=== PATIENT | female | born 1950 | race Caucasian/White ===

== ENCOUNTER 2017-01-24 08:00 | Outpatient (CLI) | payer MEDICARE, BC ==
[~2017-01-24] VITALS: Ht 167.6 cm; Wt 158.8 kg
[2017-01-24 10:20] VITALS: Ht 167.6 cm; Wt 158.8 kg
== END 2017-01-24 23:59 | disposition home or self-care (01) ==
LOC: D.FANS 08:00
DX: E66.01 Morbid (severe) obesity due to excess calories (principal)

== ENCOUNTER → 2017-04-25 09:39 | Outpatient (CLI) | payer MEDICARE, BC ==
[2017-01-24 10:20] VITALS: BMI 56.5
== END | disposition home or self-care (01) ==
LOC: D.RT 09:39
DX: R06.09 Other forms of dyspnea (principal)

== ENCOUNTER → 2018-06-13 11:17 | Outpatient (CLI) | payer MEDICARE, BC ==
[2017-01-24 10:20] VITALS: BMI 56.5
== END | disposition home or self-care (01) ==
LOC: D.HCCARDIO 11:17
PROVIDERS: ATTEND Internal Medicine Cardiovascular Disease
DX: R06.09 Other forms of dyspnea (principal)

== ENCOUNTER → 2018-06-18 11:47 | Outpatient (CLI) | payer MEDICARE, BC ==
[2017-01-24 10:20] VITALS: BMI 56.5
--- NOTE | 2018-06-21 15:12 | EC ---
PATIENT:LOVE LOAIZA DATE OF SERVICE: 06/18/18 SEX: F MEDICAL RECORD: [id number] DATE OF : 46 LOCATION:[facility] AGE OF PATIENT: 67 ADMISSION DATE: 06/18/18 REFERRING PHYSICIAN: INTERPRETING PHYSICIAN: MAGALY ANGELES MD ECHOCARDIOGRAM REPORT ECHO CHARGES 4 ECHO COMPLETE Date: 06/18/18 CLINICAL DIAGNOSIS: SOB/ ASSESS EF AND FOR CARDIOMYOPATHY ECHOCARDIOGRAPHIC MEASUREMENTS (adult normal given) AC root (d.<3.7cm) 3.5 cm LV Septum d (<1.2 cm> 2.4 cm Valve Excursion 1.7 cm LV Septum (systole) 2.6 cm Left Atria (s.<4.0cm> 4.0 cm LVPW d(<1.2cm) 2.3 cm RV (d.<2.3cm) 3.9 cm LVPW (sytole) 2.5 cm LV diastole(<5.6CM) 3.8 cm MV E-F(>70mm/sec) cm LV systole 2.6 cm LVOT Diameter 1.9 cm MV exc.(>10mm) 1.2 cm Est.ejection fraction (50-75%) % DOPPLER: LVIT cm/sec A 65.0 cm/sec E 78.0 cm/sec LA cm/sec RVSP 20 mmHg LVOT 93 cm/sec AOP1/2T m/s Asc. Ao 126 cm/sec RVOT 117 cm/sec RA cm/sec PA 134 cm/sec AV Gradient Peak 6.36 mmHg AV Mean 3.35 mmHg AV Area 2.1 cm MV Gradient Peak 3.85 mmHg MV Mean 1.49 mmHg MV Area cm COMMENTS: Kettle Hand: Migue ROA Bonderizer: 1 Dr. [place] TAPE# PACS Pericardial Effusion N DATE OF SERVICE: 06/18/2018 PROCEDURE: Echocardiogram. FINDINGS: 1. Left ventricular chamber size is within normal limits. Left ventricular systolic function is normal. Overall ejection fraction estimated at 60%. 2. Left atrium, right atrium, and right ventricular chamber sizes are mildly dilated. 3. Valvular structures have normal structure and motion. ECHOCARDIOGRAM REPORT [id number] LOVE LAOIZA 4. Doppler interrogation reveals no significant valvular insufficiency or stenosis. Pulmonary systolic pressure is estimated at 20 mmHg. 5. No evidence of pericardial effusion or left ventricular thrombus. TRANSINT:[id number] Voice Confirmation ID: [id number] DOCUMENT ID: [id number] MAGALY ANGELES MD at 1512 CC: [id number] DICTATION DATE: 06/19/18 1127 PRINCIPAL AUTOMATION ENGINEER: 06/19/18 1234 DEP CLI 06/18/18 [place] [id number] [place] [id number]
== END | disposition home or self-care (01) ==
LOC: D.HCCARDIO 11:47
PROVIDERS: ATTEND Internal Medicine Cardiovascular Disease
DX: R06.02 Shortness of breath (principal)

== ENCOUNTER 2018-07-19 08:00 | Outpatient (CLI) | payer MEDICARE, BC ==
[2017-01-24 10:20] VITALS: BMI 56.5
[2018-07-19] MEDS ORDERED: AMBIEN10 MG PO (09:57)
[2018-07-19] MEDS ORDERED: ULTRAM50 MG PO (09:57)
[2018-07-19] MEDS ORDERED: HCTZ25 MG PO (09:57)
[2018-07-19] MEDS ORDERED: VASOTEC20 MG PO (09:58)
[2018-07-19] MEDS ORDERED: PRAVASTATIN SOD10 MG PO (09:58)
[2018-07-19] MEDS ORDERED: LYRICA200 MG PO (10:00)
[2018-07-19] MEDS ORDERED: ZYLOPRIM100 MG PO (10:00)
[2018-07-19] MEDS ORDERED: TOPROL XL200 MG PO (10:01)
[2018-07-19] MEDS ORDERED: FUROSEMIDE20 MG PO (10:01)
[2018-07-19] MEDS ORDERED: PIOGLITAZONE15 MG PO (10:02)
[2018-07-19] MEDS ORDERED: GLYBURIDE5 M1 PO (10:02)
[2018-07-19] MEDS ORDERED: NASONEX NASAL S17 GM NS (10:02)
[2018-07-19] MEDS ORDERED: SINGULAIR10 MG PO (10:03)
[2018-07-19] MEDS ORDERED: NORVASC5 MG PO (10:08)
[2018-07-19 10:58] LABS: CALC OSMOLALITY 283 mosm/kg (275-300); CALCIUM 8.6 mg/dL (8.5-10.1); CARBON DIOXIDE 29.8 mmol/L (21.0-32.0); CHLORIDE - SERUM 100 mmol/L (98-107); CREATININE - SERUM 0.8 mg/dL (0.6-1.3); GLUCOSE 185 mg/dL (74-106); POTASSIUM - SERUM 3.1 mmol/L (3.5-5.1); SODIUM 139 mmol/L (136-145); UREA NITROGEN 16 mg/dL (7-18); eGFR NON AFRICAN AMERICAN 75 mL/min (90-120)
[2018-07-19 11:08] LABS: HEMATOCRIT 39.5 % (36.0-48.0); MCH 30.2 pg (26.0-34.0); MCHC 32.9 g/dL (31.0-37.0); MCV 91.6 fL (80.0-100.0); MEAN PLATELET VOLUME 10.6 fL (7.4-10.4); RBC 4.31 10x6/uL (4.00-5.40); WBC 9.4 10x3/uL (4.8-10.8)
[2018-08-07 09:05] VITALS: BMI 59.0
== END 2018-07-19 08:01 | disposition home or self-care (01) ==
LOC: D.OPS 08:00 → D.PAN 07-22 09:15 → D.OPS 07-22 09:15 → EDSTATUS 07-22 09:15 → D.OPS 07-22 09:30
PROVIDERS: Anesthesiology; ATTEND Orthopaedic Surgery
DX: M75.41 Impingement syndrome of right shoulder (principal)

== ENCOUNTER 2018-08-07 08:36 | Outpatient (CLI) | payer MEDICARE, BC | END 2018-08-07 13:05 | disposition home or self-care (01) | LOC: D.CATH 08:36 | DX: I25.10 Atherosclerotic heart disease of native coronary artery without angina pectoris (principal); R06.02 Shortness of breath; R94.30 Abnormal result of cardiovascular function study, unspecified ==

== ENCOUNTER 2019-11-04 19:50 | Emergency (ER) | payer MEDICARE, BC ==
[~2019-11-04] VITALS: Ht 167.6 cm; Wt 161.4 kg
[~2019-11-04 19:50] MED LIST: AMBIEN10 MG PO; FUROSEMIDE20 MG PO; GLYBURIDE5 M1 PO; HCTZ25 MG PO; LYRICA200 MG PO; NASONEX NASAL S17 GM NS; NORVASC5 MG PO; PIOGLITAZONE15 MG PO; PRAVASTATIN SOD10 MG PO; SINGULAIR10 MG PO; TOPROL XL200 MG PO; ULTRAM50 MG PO; VASOTEC20 MG PO; ZYLOPRIM100 MG PO
[2019-11-04 20:50] LABS: BASOPHILS 0.1 % (0-2); EOSINOPHILS 1.5 % (0-7); HEMATOCRIT 40.2 % (36.0-48.0); IMMATURE GRANULOCYTES 0.2 % (0-5); LYMPHOCYTES 28.8 % (15-50); MCH 30.3 pg (26.0-34.0); MCHC 32.3 g/dL (31.0-37.0); MCV 93.7 fL (80.0-100.0); MEAN PLATELET VOLUME 10.4 fL (7.4-10.4); MONOCYTES 8.6 % (2-11); NEUTROPHILS 60.8 % (40-80); PLATELET COUNT 240 10x3/uL (130-400); RBC 4.29 10x6/uL (4.00-5.40); RDW 15.1 % (11.5-14.5); WBC 8.1 10x3/uL (4.8-10.8)
[2019-11-04 21:07] LABS: APTT 21.1 SECONDS (22.8-39.4); INR 0.92 (0.85-1.17); PROTIME 12.3 SECONDS (11.6-15.0)
[2019-11-04 21:10] LABS: CALC OSMOLALITY 276 mosm/kg (275-300); CALCIUM 8.5 mg/dL (8.5-10.1); CARBON DIOXIDE 28.4 mmol/L (21.0-32.0); CHLORIDE - SERUM 104 mmol/L (98-107); CREATININE - SERUM 0.9 mg/dL (0.6-1.3); POTASSIUM - SERUM 3.2 mmol/L (3.5-5.1); SODIUM 139 mmol/L (136-145); UREA NITROGEN 16 mg/dL (7-18); eGFR NON AFRICAN AMERICAN 65 mL/min (90-120)
[2019-11-04 21:16] LABS: GLUCOSE 68 mg/dL (74-106)
[2019-11-04 21:27] LABS: ALBUMIN 3.5 g/dL (3.4-5.0); ALKALINE PHOSPHATASE 63 U/L (30-120); ALT (SGPT) 24 U/L (10-68); BILIRUBIN - TOTAL 0.37 mg/dL (0.2-1.3); CKMB 0.8 U/L (0.0-3.6); CREATINE KINASE 102 UL (21-215); PROTEIN - SERUM 7.3 g/dL (6.4-8.2); TROPONIN-I < 0.017 ng/mL (0.000-0.060)
[2019-11-04 22:04] LABS: BILIRUBIN NEGATIVE (NEGATIVE); KETONE NEGATIVE (NEGATIVE); NITRITE NEGATIVE (NEGATIVE); UROBILINOGEN NORMAL (NORMAL)
== END 2019-11-04 23:00 | disposition home or self-care (01) ==
LOC: D.ER 19:50
PROVIDERS: Family Medicine
DX: I95.9 Hypotension, unspecified (principal); E11.40 Type 2 diabetes mellitus with diabetic neuropathy, unspecified; J45.909 Unspecified asthma, uncomplicated; Z79.84 Long term (current) use of oral hypoglycemic drugs

== ENCOUNTER → 2019-11-13 18:39 | Outpatient (CLI) | payer MEDICARE, BC ==
[2019-11-04 19:52] VITALS: BMI 57.4
[2019-11-13 19:22] LABS: ANION GAP 10.1 mmol/L (8-16); CALCIUM 8.7 mg/dL (8.5-10.1); CARBON DIOXIDE 28.5 mmol/L (21.0-32.0); CREATININE - SERUM 0.9 mg/dL (0.6-1.3); POTASSIUM - SERUM 3.6 mmol/L (3.5-5.1)
== END | disposition home or self-care (01) ==
LOC: D.LABREF 18:39
PROVIDERS: ATTEND Nurse Practitioner Adult Health
DX: R06.00 Dyspnea, unspecified (principal); I10 Essential (primary) hypertension

== ENCOUNTER → 2019-11-14 10:11 | Outpatient (CLI) | payer MEDICARE, BC ==
[2019-11-04 19:52] VITALS: BMI 57.4
== END | disposition home or self-care (01) ==
LOC: D.HCCECHO 10:11
PROVIDERS: ATTEND Internal Medicine Cardiovascular Disease
DX: I10 Essential (primary) hypertension (principal)

== ENCOUNTER 2020-08-13 18:04 | Emergency (ER) | payer MEDICARE, BC ==
[~2020-08-13] VITALS: Ht 167.6 cm; Wt 147.6 kg
[2020-08-13 18:20] VITALS: Ht 167.6 cm; Wt 147.6 kg
[2020-08-13] MEDS ORDERED: BUTALB-ACETAMI1 EAC4 PO (18:25)
[2020-08-13] MEDS ORDERED: DIFLUCAN100 MG PO (18:25)
[2020-08-13] MEDS ORDERED: BACTRIM 400-801 TAB PO (18:26)
[2020-08-13] MEDS ORDERED: KLOR-CON M2020 MEQ PO (18:26)
[2020-08-13] MEDS ORDERED: CO Q-10100 MG PO (18:27)
[2020-08-13] MEDS ORDERED: CLARITIN 10 MG10 MG PO (18:27)
[2020-08-13 19:59] LABS: BASOPHILS 1.1 % (0-2); HEMATOCRIT 38.6 % (36.0-48.0); LYMPHOCYTES 30.6 % (15-50); MCH 31.6 pg (26.0-34.0); MCHC 33.8 g/dL (31.0-37.0); MCV 93.4 fL (80.0-100.0); MEAN PLATELET VOLUME 8.5 fL (7.4-10.4); NEUTROPHILS 60.3 % (40-80); RBC 4.13 10x6/uL (4.00-5.40); RDW 14.2 % (11.5-14.5); WBC 8.6 10x3/uL (4.8-10.8)
[2020-08-13 20:18] LABS: PLATELET COUNT 143 10x3/uL (130-400)
[2020-08-13 20:24] LABS: CALC OSMOLALITY 284 mosm/kg (275-300); CALCIUM 8.8 mg/dL (8.5-10.1); CARBON DIOXIDE 27.7 mmol/L (21.0-32.0); CHLORIDE - SERUM 104 mmol/L (98-107); CREATININE - SERUM 0.6 mg/dL (0.6-1.3); GLUCOSE 101 mg/dL (74-106); POTASSIUM - SERUM 4.5 mmol/L (3.5-5.1); SODIUM 141 mmol/L (136-145); UREA NITROGEN 23 mg/dL (7-18); eGFR NON AFRICAN AMERICAN > 90 mL/min (90-120)
[2020-08-13 20:41] LABS: ALBUMIN 3.8 g/dL (3.4-5.0); ALKALINE PHOSPHATASE 62 U/L (30-120); ALT (SGPT) 21 U/L (10-68); BILIRUBIN - TOTAL 0.45 mg/dL (0.2-1.3); PROTEIN - SERUM 6.8 g/dL (6.4-8.2); THYROID STIMULATING HORMONE 0.48 uIU/mL (0.36-3.74)
[2020-08-13 21:38] VITALS: BP 140/59
== END 2020-08-13 21:38 | disposition home or self-care (01) ==
LOC: D.ER 18:04
PROVIDERS: Family Medicine
DX: I95.2 Hypotension due to drugs (principal); E11.9 Type 2 diabetes mellitus without complications; I10 Essential (primary) hypertension; Z79.84 Long term (current) use of oral hypoglycemic drugs; R42 Dizziness and giddiness